=== PATIENT | male | born 1990 | race Caucasian/White ===

== ENCOUNTER 2016-12-22 09:31 | Emergency (ER) | payer OTHER ==
[~2016-12-22] VITALS: Ht 160 cm; Wt 68.0 kg
[2016-12-22 09:35] VITALS: Ht 160 cm; Wt 68.0 kg
[2016-12-22] MEDS ORDERED: ONDANSETRON 4 MG INJ IV STA (09:44)
[2016-12-22] MEDS ORDERED: SOD CHLORIDE 0.9% 1,000 ML IV STA (09:44)
[2016-12-22] MEDS ORDERED: ONDA4TAB14 PO (10:45)
--- NOTE | 2016-12-22 11:14 | ERD ---
ER Documentation Chief Complaint Date/Time DATE: 12/22/16 TIME: 11:12 Chief Complaint DIZZINESS WITH NAUSEA AND VOMITING TODAY HPI This is a 26-year-old male presenting to the emergency department complaining of nausea, vomiting and diarrhea that started this morning when he woke up from bed. Patient denies any abdominal pain, headache. He states that after he vomited a few times that he felt a little lightheaded. He denies fever, hematemesis, melena or hematochezia. He denies taking any medications for this ROS All systems reviewed and are negative except as per history of present illness. Medications Home Meds Active Scripts Ondansetron (Ondansetron Odt) 4 Mg Tab.rapdis, 4 MG PO Q6H Y for NAUSEA AND/OR VOMITING, #20 TAB Prov:CJ JONES PA-C 12/22/16 PMhx/Soc Medical and Surgical Hx: pt denies Medical Hx, pt denies Surgical Hx Hx Alcohol Use: Yes Hx Substance Use: No Hx Tobacco Use: No Smoking Status: Never smoker Physical Exam Vitals Vital Signs Date Time Temp Pulse Resp B/P Pulse Ox O2 Delivery O2 Flow Rate FiO2 12/22/16 09:35 98.3 80 18 136/77 99 Physical Exam GENERAL: well-developed/well-nourished, in no apparent distress, non-toxic appearing HENT: NC/AT, moist mucous membranes EYES: Conjunctiva normal NECK: Supple, no lymphadenopathy PULM: CTA bilaterally, no rales, rhonchi, or wheezing heard CV: Normal S1S2, RRR, good capillary refill GI: Soft, non-distended,non tender to palpation Normal bowel sounds, no masses or organomegaly felt on exam No gross peritonitis, no bruits Negative Rovsing, negative Higginbotham, negative McBurney's point, Negative CVAT BACK: No masses EXT: No clubbing, cyanosis, or edema NEURO: Alert and Orientated SKIN: Intact, normal turgor PSYCH: Normal mood and mentation Results 24 hrs Current Medications Medications (Trade) Dose Ordered Sig/Cindy Route PRN Reason Start Time Stop Time Status Last Admin Dose Admin Sodium Chloride (NS) 1,000 ml @ 1,000 mls/hr Q1H STAT IV 12/22/16 09:44 12/22/16 10:43 DC 12/22/16 10:00 Ondansetron HCl (Zofran Inj) 4 mg ONCE STAT IV 12/22/16 09:44 12/22/16 09:46 DC 12/22/16 09:59 Procedures/MDM This is a 26-year-old male presenting to the emergency department with chief complaint of lightheadedness, nausea, vomiting and diarrhea that started this morning. This is likely a viral gastroenteritis. Other differentials considered are appendicitis, diverticulitis, pyelonephritis, cholecystitis. On examination patient appeared well, he has stable vital signs. He had a normal neurological exam and unremarkable abdominal exam. Patient was given 1 L of normal saline fluids and Zofran. I have reassessed him and he states that he significant feels better and he passed a fluid challenge test. Patient is stable to be discharged home with precautions to return to the emergency department for any worsening signs or symptoms. He understands and agrees with this plan Departure Diagnosis: Primary Impression: Nausea vomiting and diarrhea Condition: Stable Patient Instructions: Diet, Vomiting Or Diarrhea [6Yr-Adult], Gastroenteritis, Viral (6Y-Adult), Vomiting And Diarrhea, Nonspecific (Adult) Referrals: [facility] YOU HAVE RECEIVED A MEDICAL SCREENING EXAM AND THE RESULTS INDICATE THAT YOU DO NOT HAVE A CONDITION THAT REQUIRES URGENT TREATMENT IN THE EMERGENCY DEPARTMENT. FURTHER EVALUATION AND TREATMENT OF YOUR CONDITION CAN WAIT UNTIL YOU ARE SEEN IN YOUR DOCTORS OFFICE WITHIN THE NEXT 1-2 DAYS. IT IS YOUR RESPONSIBILITY TO MAKE AN APPOINTMENT FOR FOLOW-UP CARE. IF YOU HAVE A PRIMARY DOCTOR --you should call your primary doctor and schedule an appointment IF YOU DO NOT HAVE A PRIMARY DOCTOR YOU CAN CALL OUR PHYSICIAN REFERRAL HOTLINE AT IF YOU CAN NOT AFFORD TO SEE A PHYSICIAN YOU CAN CHOSE FROM THE FOLLOWING [facility] [address] [facility]. [facility] [place] [address] [facility] [facility] [address] [facility]. [facility] [address] [facility]. [facility] [address] [facility]. [facility]. [address] Additional Instructions: Increase fluids with electrolyte or smart water FOLLOW UP WITH YOUR PRIMARY CARE PHYSICIAN TOMORROW.Return to this facility if you are not improving as expected. Take all medicines as directed. Return to this facility if you are not improving as expected. CJ JONES PA-C Dec 22, 2016 11:14
== END 2016-12-22 12:08 | disposition home or self-care (01) ==
LOC: FTE 09:31
DX: R11.2 Nausea with vomiting, unspecified (principal); R19.7 Diarrhea, unspecified
CPT/HCPCS: 96374; J2405; J7030; Z7502

== ENCOUNTER 2017-04-19 09:22 | Emergency (ER) | payer OTHER ==
[~2017-04-19] VITALS: Ht 170.2 cm; Wt 70.9 kg
[~2017-04-19 09:22] MED LIST: ONDA4TAB14 PO
[2017-04-19 09:28] VITALS: Ht 170.2 cm; Wt 70.9 kg
[2017-04-19] MEDS ORDERED: IBUPROFEN 600 MG TAB PO ONE (10:00)
[2017-04-19] MEDS ORDERED: HYDROCODONE/APAP (5/325) TAB PO ONE (10:00)
--- NOTE | 2017-04-19 10:29 | RADRPT ---
PROCEDURE: Left leg series CLINICAL INDICATION: Trauma TECHNIQUE: AP and lateral views left leg were obtained COMPARISON: None FINDINGS: There is a spiral acute fracture involving the proximal left fibular diaphysis. Slight posterior dis placement. No other fractures or dislocations. Bony mineralization is normal without focal bony yessenia tic or lytic lesions. Soft tissues are unremarkable. IMPRESSION: Acute spiral left proximal fibular fracture. No other fractures or dislocations. RPTAT:AAJJ Physician Kenisha Date Time Electronically viewed and signed by Physician Kenisha on 04/19/2017 10:29 BM/
--- NOTE | 2017-04-19 10:31 | ERD ---
ER Documentation Chief Complaint Date/Time DATE: 04/19/17 TIME: 10:29 Chief Complaint LEFT ANKLE INJURY HPI 27-year-old male presents with left lower leg pain and ankle pain after a twisting injury while playing basketball yesterday. He states that he is landed on his left foot, then had a internally twisting injury. He has diffuse pain, achy, starting in the left lateral ankle to the left anterior ankle, worse with weightbearing and better at rest. ROS All systems reviewed and are negative except as per history of present illness. Medications Home Meds Active Scripts Ibuprofen* (Motrin*) 600 Mg Tab, 600 MG PO Q6, #30 TAB Prov:TIESHA ROMAN PA-C 04/19/17 Hydrocodone/Acetaminophen ([place] 5-325 Tablet) 1 Each Tablet, 1 TAB PO Q6H Y for PAIN, #15 TAB Prov:TIESHA ROMAN PA-C 04/19/17 Ondansetron (Ondansetron Odt) 4 Mg Tab.rapdis, 4 MG PO Q6H Y for NAUSEA AND/OR VOMITING, #20 TAB Prov:CJ JONES PA-C 12/22/16 Allergies Allergies: Coded Allergies: No Known Allergy (Unverified , 04/19/17) PMhx/Soc Medical and Surgical Hx: pt denies Medical Hx, pt denies Surgical Hx Hx Alcohol Use: Yes Hx Substance Use: No Hx Tobacco Use: No Physical Exam Vitals Vital Signs Date Time Temp Pulse Resp B/P Pulse Ox O2 Delivery O2 Flow Rate FiO2 04/19/17 09:28 98.0 73 18 139/94 99 Physical Exam General: Well-developed, well-nourished. The patient appears in no acute distress. HEENT: Head is normocephalic, atraumatic. No scleral icterus. Neck: Supple. Nontender. Lungs: Clear to auscultation. Normal air movement. Heart: Regular rate and rhythm. S1 and S2 are normal. No murmurs, gallops, or rubs. Abdomen: Nondistended. Extremities: ttp over proximal lateral portion of the lower leg, swelling extends to the distal portion of the lower leg, across the left lateral malleolus. Full ROM of left ankle. No bony deformities. Full ROM of left knee. Achilles is intact. Limited range of motion due to pain. Compartments are soft Neurologic: alert and oriented 3. No focal deficits. Normal speech and gait. Skin: Normal turgor. No rash or lesions. Results 24 hrs Current Medications Medications (Trade) Dose Ordered Sig/Cindy Route PRN Reason Start Time Stop Time Status Last Admin Dose Admin Ibuprofen (Motrin) 600 mg ONCE ONCE PO 04/19/17 10:00 04/19/17 10:01 DC 04/19/17 10:13 Acetaminophen/ Hydrocodone Bitart ([place] (5/325)) 1 tab ONCE ONCE PO 04/19/17 10:00 04/19/17 10:01 DC 04/19/17 10:13 DIAGNOSTIC IMAGING REPORT Patient: IMTIAZ GAYTAN : 1990 Age: 27 Sex: M MR #: [id number] DOS: 04/19/17 0956 Ordering MD: TIESHA ROMAN PA-C Location: [facility] Room/Bed: PROCEDURE: Left leg series CLINICAL INDICATION: Trauma TECHNIQUE: AP and lateral views left leg were obtained COMPARISON: None FINDINGS: There is a spiral acute fracture involving the proximal left fibular diaphysis. Slight posterior displacement. No other fractures or dislocations. Bony mineralization is normal without focal bony blastic or lytic lesions. Soft tissues are unremarkable. IMPRESSION: Acute spiral left proximal fibular fracture. No other fractures or dislocations. RPTAT:AAJJ Physician Kenisha Date Time Electronically viewed and signed by Physician Kenisha on 04/19/2017 10:29 BM/ CC: TIESHA ROMAN PA-C DIAGNOSTIC IMAGING REPORT Patient: IMTIAZ GAYTAN : 1990 Age: 27 Sex: M MR #: [id number] DOS: 04/19/17 0953 Ordering MD: TIESHA ROMAN PA-C Location: [facility] Room/Bed: PROCEDURE: Left ankle series CLINICAL INDICATION: Trauma TECHNIQUE: AP lateral and oblique images were obtained of the left ankle. COMPARISON: None FINDINGS: There is a small calcification along the posterior distal left tibia without a fracture line demonstrated. This calcification may represent normal variant or evidence of old trauma. A definite acute fractures not demonstrated. No evidence dislocation. The bony mineralization is normal. No focal bony blastic or lytic lesions. There is soft tissue swelling throughout the left ankle particularly the medial aspect. There are no foreign bodies. IMPRESSION: Soft tissue swelling involving the left ankle especially the medial aspect. Small calcification along the posterior distal left tibia without fracture line demonstrated and this may represent a normal variant or evidence of old trauma. A definite acute fractures not demonstrated. Recommend clinical correlation. RPTAT:AAJJ Physician Kenisha Date Time Electronically viewed and signed by Seb Valero Physician on 04/19/2017 10:31 BM/ CC: TIESHA ROMAN PA-C Procedures/MDM ED course: Patient was given ibuprofen and [place] for pain. Patient's left leg was placed in a long-leg splint. He was given crutches to be nonweightbearing. Splint Assessment: Neurovascularly intact post splint placement with good fit. Medical decision makin-year-old male presents with a twisting injury to his left lower leg and left ankle, with a proximal spiral fracture of the left fibula. X-rays of the left ankle are negative for an acute fracture dislocation. He is neurovascularly intact, was placed in a long-leg splint and will be asked to follow-up with orthopedics shortly. He was given information for follow-up, to Dr. Titi Wellington. Departure Diagnosis: Primary Impression: Closed fibular fracture Condition: Good TIESHA ROMAN PA-C Apr 19, 2017 10:31
--- NOTE | 2017-04-19 10:32 | RADRPT ---
PROCEDURE: Left ankle series CLINICAL INDICATION: Trauma TECHNIQUE: AP lateral and oblique images were obtained of the left ankle. COMPARISON: None FINDINGS: There is a small calcification along the posterior distal left tibia without a fracture line demonst rated. This calcification may represent normal variant or evidence of old trauma. A definite acute f ractures not demonstrated. No evidence dislocation. The bony mineralization is normal. No focal bony blastic or lytic lesions. There is soft tissue swelling throughout the left ankle particularly the medial aspect. There are no foreign bodies. IMPRESSION: Soft tissue swelling involving the left ankle especially the medial aspect. Small calcification ryder g the posterior distal left tibia without fracture line demonstrated and this may represent a normal variant or evidence of old trauma. A definite acute fractures not demonstrated. Recommend clinical correlation. RPTAT:AAJJ Physician Kenisha Date Time Electronically viewed and signed by Physician Kenisha on 04/19/2017 10:31 BM/
[2017-04-19] MEDS ORDERED: IBUP-1542 PO (10:46)
[2017-04-19] MEDS ORDERED: HYDR-906 PO (10:46)
== END 2017-04-19 11:21 | disposition home or self-care (01) ==
LOC: FTE 09:22
DX: S82.442A Displaced spiral fracture of shaft of left fibula, initial encounter for closed fracture (principal); X50.9XXA Other and unspecified overexertion or strenuous movements or postures, initial encounter; Y92.9 Unspecified place or not applicable
CPT/HCPCS: 29505; 73590; 73610; Z7502; Z7610

== ENCOUNTER 2017-04-23 15:17 | Emergency (ER) | payer OTHER ==
[~2017-04-23] VITALS: Ht 157.5 cm; Wt 78.5 kg
[~2017-04-23 15:17] MED LIST changes: +HYDR-906 PO; +IBUP-1542 PO
[2017-04-23 15:20] VITALS: Ht 157.5 cm; Wt 78.5 kg
--- NOTE | 2017-04-23 16:05 | ERD ---
ER Documentation Chief Complaint Date/Time DATE: 04/23/17 TIME: 16:03 Chief Complaint Complains of left leg pain HPI This is a 27-year-old male who presents the emergency department today requesting that his splints be reapplied. She has some mild pain. Patient indicated that he had gone to an outside hospital thinking that he was going to get a cast on and indicated that he put the splint back on himself and it does not feel right. Denies any new trauma, fevers or chills. ROS All systems reviewed and are negative except as per history of present illness. Medications Home Meds Active Scripts Ibuprofen* (Motrin*) 600 Mg Tab, 600 MG PO Q6, #30 TAB Prov:TIESHA ROMAN PA-C 04/19/17 Hydrocodone/Acetaminophen ([place] 5-325 Tablet) 1 Each Tablet, 1 TAB PO Q6H Y for PAIN, #15 TAB Prov:TIESHA ROMAN PA-C 04/19/17 Ondansetron (Ondansetron Odt) 4 Mg Tab.rapdis, 4 MG PO Q6H Y for NAUSEA AND/OR VOMITING, #20 TAB Prov:CJ JONES PA-C 12/22/16 Allergies Allergies: Coded Allergies: No Known Allergy (Unverified , 04/19/17) PMhx/Soc Medical and Surgical Hx: pt denies Medical Hx, pt denies Surgical Hx Hx Alcohol Use: Yes Hx Substance Use: No Hx Tobacco Use: No Physical Exam Vitals Vital Signs Date Time Temp Pulse Resp B/P Pulse Ox O2 Delivery O2 Flow Rate FiO2 04/23/17 15:20 98.3 73 20 140/75 97 Physical Exam Const: NAD Head: Atraumatic Eyes: Normal Conjunctiva ENT: Normal External Ears, Nose and Mouth. Neck: Full range of motion..~ No meningismus. Resp: Clear to auscultation bilaterally Cardio: Regular rate and rhythm, no murmurs Skin: No petechiae or rashes no evidence of skin breakdown. Back: No midline or flank tenderness Ext: Left leg with mild soft tissue swelling and ecchymosis. Pulses 2+. Distal neurovascularly intact. Neur: Awake and alert Psych: Normal Mood and Affect Procedures/MDM This is a 27-year-old male whose presents to the emergency department today requesting new splint application. He indicated he has some mild pain however there does not appear to be significant tenderness to palpation. His tissues are soft and I have low suspicion for compartment syndrome. Patient is afebrile and otherwise well-appearing. There is no skin breakdown. Patient splint was reapplied. He was given referral information to follow-up with a primary care doctor for referral to orthopedics. Low suspicion for acute fracture, dislocation. Low suspicion for cellulitis, sepsis or deep space infection. Symptoms at this time is consistent with left leg pain secondary to acute spiral left proximal fibular fracture. There are no other fractures or dislocations. At this time the patient is stable for discharge and outpatient management. Patient should follow up with their PCP in the next 1-2 days. They may return to the emergency department sooner for any persistent or worsening of symptoms. Patient understood and agreed with the plan. Departure Diagnosis: Primary Impression: Pain of left leg Condition: ALBERTA Smith PA-C Apr 23, 2017 16:05
== END 2017-04-23 16:49 | disposition home or self-care (01) ==
LOC: FTE 15:17
DX: M79.605 Pain in left leg (principal)
CPT/HCPCS: 29505; Z7502

== ENCOUNTER 2018-01-14 16:11 | Emergency (ER) | END 2018-01-14 18:04 | disposition home or self-care (01) ==